=== PATIENT | male | born 1965 | race Two or more races ===

== ENCOUNTER 2019-03-18 21:30 | Emergency (ER) | payer OTHER ==
[~2019-03-18] VITALS: Ht 177.8 cm; Wt 81.6 kg
[2019-03-18] MEDS ORDERED: METROPOLOL (21:54)
[2019-03-18] MEDS ORDERED: ADULT ASPIRIN81 MG (21:54)
== END 2019-03-19 00:56 | disposition home or self-care (01) ==
LOC: ER 21:30
DX: K57.90 Diverticulosis of intestine, part unspecified, without perforation or abscess without bleeding (principal); R10.31 Right lower quadrant pain

== ENCOUNTER 2019-12-19 14:49 | Emergency (ER) | payer OTHER ==
[~2019-12-19] VITALS: Ht 177.8 cm; Wt 79.8 kg
[~2019-12-19 14:49] MED LIST: ADULT ASPIRIN81 MG; METROPOLOL
== END 2019-12-19 19:13 | disposition home or self-care (01) ==
LOC: ER 14:49
DX: R07.89 Other chest pain (principal)